=== PATIENT | female | born 1945 | race Caucasian/White ===

== ENCOUNTER 2023-11-12 14:53 | Emergency (ER) | payer MEDICARE, OTHER ==
[2023-11-12] MEDS ORDERED: Bacitracin 1 PK ONE (15:39)
== END 2023-11-12 15:43 | disposition home or self-care (01) ==
LOC: MADERS 14:53
DX: N61.0 Mastitis without abscess (principal); T81.31XA Disruption of external operation (surgical) wound, not elsewhere classified, initial encounter; F17.210 Nicotine dependence, cigarettes, uncomplicated
CPT/HCPCS: 87070; 87205; 99283